=== PATIENT | male | born 1980 | race Two or more races ===

== ENCOUNTER 2017-02-20 23:30 | Emergency (ER) | payer SELFPAY ==
[~2017-02-20] VITALS: Ht 177.8 cm; Wt 68.9 kg
[2017-02-20 23:45] VITALS: BP 141/91
--- NOTE | 2017-02-21 | NUR ---
CALLED FOR ROOM ASSIGNMENT; NOT IN LOBBY
--- NOTE | 2017-02-21 00:38 | NUR ---
CALLED AGAIN X4 NOT IN LOBBY.
== END 2017-02-21 00:39 | disposition left against medical advice (07) ==
LOC: ER 23:32
DX: Z53.21 Procedure and treatment not carried out due to patient leaving prior to being seen by health care provider (principal)
CPT/HCPCS: A4606; Z7610